=== PATIENT | female | born 1975 | race Caucasian/White ===

== ENCOUNTER 2016-03-18 16:36 | Emergency (ER) | payer BC | END 2016-03-18 18:41 | disposition left against medical advice (07) | LOC: UCCORT 16:36 | DX: R09.81 Nasal congestion (principal); R11.10 Vomiting, unspecified; Z53.21 Procedure and treatment not carried out due to patient leaving prior to being seen by health care provider ==

== ENCOUNTER 2016-08-15 07:13 | Emergency (ER) | payer BC ==
[2016-08-15 07:26] VITALS: BP 116/75
[2016-08-15] MEDS ORDERED: Phenazopyridine TAB* 100 MG PO ONE (08:04)
[2016-08-15] MEDS ORDERED: Cephalexin CAP* 500 MG PO ONE (08:04)
--- NOTE | 2016-08-15 08:13 | UC ---
Pediatric GI/ HPI - HPI Summary HPI Summary: 40 yo female with the onset yesterday of dysuria/urgency/frequency and hematuria no vag d/c or itch no f/c terminal dysuria is so severe she gets some nausea some mild left lower back pain no hx of pyleo or stones - History Of Current Complaint Chief Complaint: UCGU Stated Complaint: URINARY COMPLAINT Time Seen by Provider: 08/15/16 07:45 Hx Obtained From: Patient Onset/Duration: Gradual Onset, Lasting Hours Vomiting: # Of Episodes - 0, Episodes Are: - non existent Diarrhea: # Of Episodes - 0, Episodes Are: - non existent Voided: # Of Episodes - many, Episodes Are: - painful Severity Initially: Moderate Severity Currently: Severe Pain Intensity: 2 - 10 with voiding Pain Scale Used: 0-10 Numeric Associated Signs And Symptoms: Positive: Increased Urinary Frequency. Negative : Fever - Allergies/Home Medications Allergies/Adverse Reactions: Allergies Allergy/AdvReac Type Severity Reaction Status Date / Time No Known Allergies Allergy Verified 08/15/16 07:27 Home Medications: Home Medications Estradiol TAB(NF) 0.1 mg PO DAILY 08/15/16 [History Confirmed 08/15/16] Past Medical History Previously Healthy: Yes Chronic Illness History: No: Diabetes - Family History Family History of Asthma: No Family History Of Seizure: No Other: no hx kidney stones/stone FHx of ovarian CA Review Of Systems Constitutional: Negative Eyes: Negative ENT: Negative Cardiovascular: Negative Respiratory: Negative Gastrointestinal: Negative Genitourinary: Dysuria, Other - urgency/frequency and hematuria Musculoskeletal: Negative Skin: Negative Neurological: Negative Psychological: Negative All Other Systems Reviewed And Are Negative: Yes Physical Exam Triage Information Reviewed: Yes Vital Signs: Initial Vital Signs Temp 98.1 F 08/15/16 07:22 Pulse 91 08/15/16 07:22 Resp 14 08/15/16 07:22 BP 116/75 08/15/16 07:22 Pulse Ox 99 08/15/16 07:22 Vital Signs Reviewed: Yes Appearance: Well-Appearing, No Pain Distress, Well-Nourished Eyes: Positive: Conjunctiva Clear ENT: Positive: Normal ENT inspection Neck: Positive: Supple Respiratory: Positive: Lungs clear, Normal breath sounds, No respiratory distress, No accessory muscle use Cardiovascular: Positive: Normal, RRR. Negative: Tachycardia, Bradycardia Abdomen Description: Positive: Nontender, No Organomegaly, Soft. Negative: CVA Tenderness (R), CVA Tenderness (L) Musculoskeletal: Positive: ROM Intact Neurological: Positive: Normal, Alert Psychological: Positive: Normal Pediatric GI Course/Dx - Differential Dx/Diagnosis Provider Diagnoses: acute cystitis Discharge - Discharge Plan Condition: Stable Disposition: HOME Prescriptions: Cephalexin CAP* [Keflex CAP*] 500 mg PO BID #14 cap Phenazopyridine TAB* [Pyridium TAB*] 100 mg PO TID #6 tab Patient Education Materials: Urinary Tract Infection in Women (ED) Additional Instructions: recheck in 2-3 days if not better a urine culture is pending recheck for severe back pain/fever or vomiting Take another keflex early afternoon today and at bedtime then twice a day until finished
== END 2016-08-15 08:13 | disposition home or self-care (01) ==
LOC: UCCORT 07:13
DX: N30.01 Acute cystitis with hematuria (principal)
CPT/HCPCS: 81003; 87077; 87086; 87186; 99212; A9270-GY; G0463